=== PATIENT | male | born 1980 | race Caucasian/White ===

== ENCOUNTER 2018-12-03 15:19 | Emergency (ER) | payer OTHER ==
[2018-12-03] MEDS ORDERED: Sulfamethox/Trimethoprim SS 400/80* TAB PO ONE (15:58)
--- NOTE | 2018-12-03 17:08 | ED ---
Upper Extremity Pain - HPI Summary HPI Summary: This patient is 38-year-old male sent in by will not urgent care with some swelling around the PIP joint of the fourth finger after he dislodged a splinter last evening. He was sent here as well now was concerned for a "joint infection." There is no erythema to the area. There is slight swelling. No obvious signs of trauma or retained foreign body. Patient denies any other concerns, including fevers, sweats, chills. He is able to flex and extend at the PIP joint. - History of Current Complaint Chief Complaint: EDRashSkinAbscess Stated Complaint: INFECTION TO RIGHT RING FINGER Time Seen by Provider: 12/03/18 15:24 Hx Obtained From: Patient Onset/Duration: Started Days Ago Timing: Constant Severity Initially: Moderate Severity Currently: Moderate Character: Aching Aggravating Factor(s): Nothing Alleviating Factor(s): Nothing Associated Signs & Symptoms: Positive: Negative Related History: Dominant Hand Right - Risk Factors Non-Orthopedic Risk Factor: Negative DVT Risk Factors: Negative Septic Arthritis Risk Factor: Negative Compartment Syndrome Risk Factors: Pain - Allergies/Home Medications Allergies/Adverse Reactions: Allergies Allergy/AdvReac Type Severity Reaction Status Date / Time No Known Allergies Allergy Verified 12/03/18 15:23 Home Medications: Home Medications Finasteride (ALOPECIA) (NF) [Propecia (NF)] 1 mg PO DAILY 12/03/18 [History Confirmed 12/03/18] PMH/Surg Hx/FS Hx/Imm Hx Previously Healthy: Yes - Immunization History Hx Pertussis Vaccination: No Immunizations Up to Date: Yes Infectious Disease History: No Infectious Disease History: Reports: Traveled Outside the [place] in Last 30 Days - Social History Occupation: Employed Full-time Lives: With Family Alcohol Use: None Hx Substance Use: No Substance Use Type: Reports: None Hx Tobacco Use: No Smoking Status (MU): Never Smoked Tobacco Review of Systems Constitutional: Negative Eyes: Negative Cardiovascular: Negative Respiratory: Negative Genitourinary: Negative Positive: no symptoms reported, see HPI Negative: Arthralgia, Myalgia Positive: Other - swelling to the R fourth PIP Neurological: Negative All Other Systems Reviewed And Are Negative: Yes Physical Exam Triage Information Reviewed: Yes Vital Signs On Initial Exam: Initial Vitals Temp Pulse Resp BP Pulse Ox 97.2 F 62 18 121/76 97 12/03/18 15:20 12/03/18 15:20 12/03/18 15:20 12/03/18 15:20 12/03/18 15:20 Vital Signs Reviewed: Yes Appearance: Positive: Well-Appearing, Well-Nourished Skin: Positive: Warm - right fourth PIP swelling - mild, Skin Color Reflects Adequate Perfusion Neck: Positive: Supple, No Lymphadenopathy Respiratory/Lung Sounds: Positive: Clear to Auscultation, Breath Sounds Present Cardiovascular: Positive: RRR, Pulses are Symmetrical in both Upper and Lower Extremities Musculoskeletal: Positive: Strength/ROM Intact Neurological: Positive: Sensory/Motor Intact, Alert, Oriented to Person Place, Time, Speech Normal Psychiatric: Positive: Affect/Mood Appropriate AVPU Assessment: Alert Diagnostics - Vital Signs Vital Signs Temp Pulse Resp BP Pulse Ox 12/03/18 15:20 97.2 F 62 18 121/76 97 - Laboratory Lab Statement: Any lab studies that have been ordered have been reviewed, and results considered in the medical decision making process. Course/Dx - Course Course Of Treatment: During his course of treatment the patient is evaluated for right fourth PIP mild swelling after he pulled a splinter just distal to this area out last evening. He denies any pain. There is no erythema. Slight and mild swelling to the area. X-ray obtained to assess for foreign body. This was negative. He was given Bactrim here in the ED and will be prescribed Bactrim at home for a possible accumulating infection. - Diagnoses Differential Diagnosis/HQI/PQRI: Positive: Strain, Sprain Provider Diagnoses: Splinter, Swelling of joint Discharge - Sign-Out/Discharge Documenting (check all that apply): Patient Departure Patient Received Moderate/Deep Sedation with Procedure: No - Discharge Plan Condition: Stable Disposition: HOME Prescriptions: Sulfamethox/Trimethoprim DS* [Bactrim DS 800/160 TAB*] 1 tab PO BID #10 tab Referrals: No Primary Care Phys,NOPCP [Primary Care Provider] - Additional Instructions: No evidence of foreign body Bactrim twice daily 5 days - Billing Disposition and Condition Condition: STABLE Disposition: Home - Attestation Statements Provider Attestation: I was available for consultation for this patient. I did not participate in any medical decision making or disposition decisions unless I am specifically named in the chart as having consulted on the patient. If I have consulted on the patient, please see my own ED note on the patient encounter. Juan Grant MD
[2018-12-03 17:11] VITALS: BP 118/74
== END 2018-12-03 17:07 | disposition home or self-care (01) ==
LOC: ED 15:19
DX: S60.454A Superficial foreign body of right ring finger, initial encounter (principal); M79.89 Other specified soft tissue disorders; W45.8XXA Other foreign body or object entering through skin, initial encounter; Y92.9 Unspecified place or not applicable
CPT/HCPCS: 73140; 99282; A9270-GY